=== PATIENT | male | born 1970 | race Hispanic/Latino ===

== ENCOUNTER 2021-08-08 17:34 | Emergency (ER) | payer SELFPAY ==
[~2021-08-08] VITALS: Ht 170.2 cm; Wt 108.4 kg
[2021-08-08 17:37] VITALS: BP 130/70
== END 2021-08-08 18:22 | disposition left against medical advice (07) ==
LOC: EDH 17:34
DX: Z53.21 Procedure and treatment not carried out due to patient leaving prior to being seen by health care provider (principal); F10.239 Alcohol dependence with withdrawal, unspecified